=== PATIENT | male | born 1940 | race African-American/Black ===

== ENCOUNTER 2023-11-09 02:43 | Inpatient (IN) | payer OTHER ==
[~2023-11-09] VITALS: Ht 167.6 cm; Wt 56.7 kg
[2023-11-09 02:51] VITALS: BP_SYST 144; PULSE 87; RESP 19; TEMP 97.3; O2SAT 99
[2023-11-09 04:18] LABS: BILIRUBIN,URINE NEGATIVE (NEGATIVE); BLOOD, URINE NEGATIVE (NEGATIVE); CLARITY/URINE CLEAR (CLEAR); COLOR,URINE YELLOW (YELLOW); GLUCOSE,URINE 3+ (NEGATIVE); KETONES,URINE NEGATIVE (NEGATIVE); LEUKOCYTE ESTERASE ,URINE NEGATIVE (NEGATIVE); NITRITE, URINE NEGATIVE (NEGATIVE); PROTEIN URINE NEGATIVE (NEGATIVE); UROBILINOGEN,URINE 0.2 (0.2-1.0)
[2023-11-09 04:44] LABS: BASOPHILS # (AUTO) 0.1 K/uL (0.0-0.2); BASOPHILS % (AUTO) 0.6 % (0.0-2.0); EOSINOPHILS # (AUTO) 0.5 K/uL (0.0-0.4); EOSINOPHILS % (AUTO) 5.3 % (0.0-4.0); HEMATOCRIT 32.1 % (36-54); HEMOGLOBIN 10.5 g/dL (14.0-18.0); LYMPHOCYTES # (AUTO) 1.4 K/uL (1.0-5.5); MEAN CORPUSCULAR HEMOGLOBIN 29 pg (27-31); MEAN CORPUSCULAR HGB CONC 33 % (32-36); MEAN CORPUSCULAR VOLUME 89 fL (79.0-98.0); MONOCYTES # (AUTO) 0.8 K/uL (0.0-1.0); MONOCYTES % (AUTO) 9.1 % (1.7-9.3); NEUTROPHILS # (AUTO) 6.3 K/uL (1.8-7.7); PLATELET COUNT (AUTO) 422 K/uL (130-430); RED BLOOD CELL COUNT(AUTO) 3.61 MIL/uL (4.2-6.2); RED CELL DISTRIBUTION WIDTH 14.1 % (9.0-15.0)
[2023-11-09 04:58] LABS: ALANINE AMINOTRANSFERASE 14 U/L (12-78); ANION GAP 7 (5-15); ASPARTATE AMINOTRANSFERASE 17 U/L (10-37); BILIRUBIN,DIRECT 0.1 mg/dL (0.0-0.3); CALCIUM 8.5 mg/dL (8.4-11.0); CARBON DIOXIDE 25 mmol/L (23-29); CHLORIDE 113 mmol/L (98-107); CREATININE 1.58 mg/dL (0.55-1.30); GLUCOSE 190 mg/dL (74-106); POTASSIUM 3.5 mmol/L (3.5-5.1); SODIUM SERUM 145 mmol/L (136-145); TOTAL BILIRUBIN 0.2 mg/dL (0.0-1.0); TOTAL PROTEIN, SERUM 5.7 g/dL (6.4-8.3); UREA NITROGEN, BLOOD 20 mg/dL (8-21)
[2023-11-09] MEDS ORDERED: HYDROcodone/ACETAMIN 5-325 MG TAB (NORCO/ VICODIN) PO PRN (06:15)
[2023-11-09] MEDS ORDERED: ONDANSETRON HCL 4 MG/2 ML VIAL IVP PRN (06:15)
[2023-11-09] MEDS ORDERED: ACETAMINOPHEN 325 MG TABLET PO PRN (06:15)
[2023-11-09] MEDS ORDERED: HYDROcodone/ACETAMIN 10-325 MG TAB PO PRN (06:15)
[2023-11-09] MEDS ORDERED: VANC125C10 PO (06:41)
[2023-11-09] MEDS ORDERED: MIRT-91 PO (06:41)
[2023-11-09] MEDS ORDERED: ASPI-1155 PO (06:41)
[2023-11-09] MEDS ORDERED: METO-442 PO (06:41)
[2023-11-09] MEDS ORDERED: FENO160 PO (06:41)
[2023-11-09] MEDS ORDERED: HYDR-2923 PO (06:41)
[2023-11-09] MEDS ORDERED: MEGE400O46 PO (06:41)
[2023-11-09] MEDS ORDERED: ZINC100T2 PO (06:41)
[2023-11-09] MEDS ORDERED: FER300L (06:41)
[2023-11-09] MEDS ORDERED: ASCO500T20 PO (06:41)
[2023-11-09] MEDS ORDERED: ACET325T PO (06:41)
[2023-11-09] MEDS ORDERED: LOPE2CAP PO (06:41)
[2023-11-09] MEDS ORDERED: GLIP10TA11 PO (06:41)
[2023-11-09] MEDS ORDERED: LIP20 PO (06:41)
[2023-11-09] MEDS ORDERED: FAMO40TA71 PO (06:41)
[2023-11-09] MEDS ORDERED: DONE10TA44 PO (06:41)
[2023-11-09] MEDS ORDERED: SACC250C3 PO (06:41)
[2023-11-09] MEDS ORDERED: INSU100V10 (06:41)
[2023-11-09] MEDS: NACL 0.9% 1,000 ML IV ONE (07:05)
[2023-11-09] MEDS: NACL 0.9% 1,000 ML IV SCH (08:03)
[2023-11-09 10:35] VITALS: BP_SYST 159; PULSE 84; RESP 18; TEMP 97.9; O2SAT 94
[2023-11-09 15:54] VITALS: BP_SYST 155; PULSE 81; RESP 16; TEMP 98.4; O2SAT 93
[2023-11-09] MEDS ORDERED: DEXTROSE 50% JECT 50 ML DISP.SYRIN IVP PRN (17:45)
[2023-11-09] MEDS ORDERED: GLUCOSE (DEXTROSE) ORAL GEL -Adults PO PRN (17:45)
[2023-11-09] MEDS ORDERED: D5W 1,000 ML IV PRN (17:45)
[2023-11-09] MEDS: hydrALAZINE HCL 10 MG TABLET PO ONE (18:51)
[2023-11-09 20:00] VITALS: BP_SYST 150; PULSE 80; RESP 18; TEMP 98; O2SAT 95
[2023-11-09] MEDS: ATORVASTATIN 20 MG TABLET PO SCH (22:03)
[2023-11-09] MEDS: hydrALAZINE HCL 10 MG TABLET PO SCH (22:04)
[2023-11-09] MEDS: METOPROLOL TARTRATE 50 MG TABLET PO SCH (22:05)
[2023-11-09] MEDS: VANCOMYCIN HCL ORAL SOLUTION 25 MG/ML, 150 ML PO SCH (22:06)
[2023-11-09] MEDS: DONEPEZIL HCL 5 MG TABLET (ARICEPT) PO SCH (22:06)
[2023-11-09] MEDS: MIRTAZAPINE 15 MG TABLET PO SCH (22:10)
[2023-11-10 00:40] VITALS: BP_SYST 143; PULSE 90; RESP 14; TEMP 99; O2SAT 100
[2023-11-10 04:39] LABS: BASOPHILS # (AUTO) 0.1 K/uL (0.0-0.2); BASOPHILS % (AUTO) 0.8 % (0.0-2.0); EOSINOPHILS # (AUTO) 0.5 K/uL (0.0-0.4); EOSINOPHILS % (AUTO) 6.2 % (0.0-4.0); HEMATOCRIT 29.4 % (36-54); HEMOGLOBIN 9.7 g/dL (14.0-18.0); LYMPHOCYTES # (AUTO) 1.8 K/uL (1.0-5.5); LYMPHOCYTES % (AUTO) 21.6 % (20.5-51.5); MEAN CORPUSCULAR HEMOGLOBIN 29 pg (27-31); MEAN CORPUSCULAR HGB CONC 33 % (32-36); MEAN CORPUSCULAR VOLUME 89 fL (79.0-98.0); MONOCYTES # (AUTO) 0.8 K/uL (0.0-1.0); MONOCYTES % (AUTO) 10.1 % (1.7-9.3); NEUTROPHILS % (AUTO) 61.3 % (40.0-70.0); PLATELET COUNT (AUTO) 408 K/uL (130-430); RED BLOOD CELL COUNT(AUTO) 3.32 MIL/uL (4.2-6.2); WHITE BLOOD COUNT (AUTO) 8.2 K/uL (4.8-10.8)
[2023-11-10 04:56] LABS: ALANINE AMINOTRANSFERASE 13 U/L (12-78); ALBUMIN 1.8 g/dL (3.4-4.8); ANION GAP 7 (5-15); ASPARTATE AMINOTRANSFERASE 17 U/L (10-37); CARBON DIOXIDE 23 mmol/L (23-29); CHLORIDE 114 mmol/L (98-107); GLUCOSE 230 mg/dL (74-106); POTASSIUM 3.7 mmol/L (3.5-5.1); SODIUM SERUM 144 mmol/L (136-145); TOTAL BILIRUBIN 0.2 mg/dL (0.0-1.0); TOTAL PROTEIN, SERUM 5.2 g/dL (6.4-8.3); UREA NITROGEN, BLOOD 13 mg/dL (8-21)
[2023-11-10 08:05] VITALS: BP_SYST 135; PULSE 88; RESP 17; TEMP 98.4; O2SAT 99
[2023-11-10 08:10] VITALS: O2SAT 99
[2023-11-10] MEDS: ASPIRIN 81 MG TAB.CHEW PO SCH (08:37)
[2023-11-10] MEDS: LACTOBACILLUS RHAMNOSUS GG 1 CAP CAPSULE PO SCH (08:37)
[2023-11-10] MEDS: ASCORBIC ACID 500 MG TABLET PO SCH (08:37)
[2023-11-10] MEDS: FAMOTIDINE 20 MG TABLET PO SCH (08:37)
[2023-11-10] MEDS: FENOFIBRATE 160 MG TABLET PO SCH (09:00)
[2023-11-10] MEDS ORDERED: SACCHAROMYCES BOULARDII 250 MG CAPSULE (FLORASTOR) PO SCH (09:00)
[2023-11-10] MEDS ORDERED: LOPERAMIDE HCL 2 MG CAPSULE PO SCH (09:00)
[2023-11-10 11:18] VITALS: BP_SYST 137; PULSE 76; RESP 14; TEMP 98.6; O2SAT 100
[2023-11-10 14:19] VITALS: BP_SYST 125; PULSE 77; RESP 18; TEMP 98.6; O2SAT 98
== END 2023-11-10 16:05 | DRG 641 ==
LOC: SED 02:43 → SMU 06:26 → OBSVTOIN 15:38
PROVIDERS: ADMIT Internal Medicine; ATTEND Internal Medicine
DX: E86.0 Dehydration (principal); A04.72 Enterocolitis due to Clostridium difficile, not specified as recurrent; E44.0 Moderate protein-calorie malnutrition; E11.9 Type 2 diabetes mellitus without complications; E78.5 Hyperlipidemia, unspecified; E87.20 Acidosis, unspecified; G30.9 Alzheimer's disease, unspecified; F02.80 Dementia in other diseases classified elsewhere, unspecified severity, without behavioral disturbance, psychotic disturbance, mood disturbance, and anxiety; I11.0 Hypertensive heart disease with heart failure; I50.9 Heart failure, unspecified; Z68.20 Body mass index [BMI] 20.0-20.9, adult
CPT/HCPCS: 36415; 70450-TC; 71045; 72125-TC; 80048; 80053; 80076; 81001; 81003; 82948; 83605; 85025; 87040; 87081; 97110-GP; 97530-GP; 99285; G0378

== ENCOUNTER 2024-02-26 10:48 | Emergency (ER) | payer OTHER, MEDICAID ==
[~2024-02-26] VITALS: Ht 167.6 cm; Wt 59.0 kg
[~2024-02-26 10:48] MED LIST: ACET325T PO; ASCO500T20 PO; ASPI-1155 PO; DONE10TA44 PO; FAMO40TA71 PO; FENO160 PO; FER300L; GLIP10TA11 PO; HYDR-2923 PO; INSU100V10; LIP20 PO; LOPE2CAP PO; MEGE400O46 PO; METO-442 PO; MIRT-91 PO; SACC250C3 PO; VANC125C10 PO; ZINC100T2 PO
[2024-02-26 11:08] VITALS: BP_SYST 130; PULSE 98; RESP 16; TEMP 97.8; O2SAT 98
[2024-02-26] MEDS: BACITRACIN 1 GM OINT TP ONE (12:16)
[2024-02-26] MEDS: DIPHTH,PERTUSS(ACELL),TET VAC 0.5 ML VIAL (Tdap) I.M. ONE (12:18)
[2024-02-26] MEDS: LIDOCAINE 1% 10 MG/ML, 20 ML MDV INJ ONE (12:20)
[2024-02-26 12:52] LABS: BASOPHILS # (AUTO) 0.1 K/uL (0.0-0.2); BASOPHILS % (AUTO) 0.8 % (0.0-2.0); EOSINOPHILS # (AUTO) 0.8 K/uL (0.0-0.4); EOSINOPHILS % (AUTO) 7.3 % (0.0-4.0); HEMATOCRIT 32.8 % (36-54); HEMOGLOBIN 10.9 g/dL (14.0-18.0); LYMPHOCYTES # (AUTO) 3.2 K/uL (1.0-5.5); LYMPHOCYTES % (AUTO) 27.5 % (20.5-51.5); MEAN CORPUSCULAR HEMOGLOBIN 29 pg (27-31); MEAN CORPUSCULAR HGB CONC 33 % (32-36); MEAN CORPUSCULAR VOLUME 88 fL (79.0-98.0); MONOCYTES # (AUTO) 0.9 K/uL (0.0-1.0); MONOCYTES % (AUTO) 7.8 % (1.7-9.3); NEUTROPHILS # (AUTO) 6.6 K/uL (1.8-7.7); NEUTROPHILS % (AUTO) 56.6 % (40.0-70.0); PLATELET COUNT (AUTO) 360 K/uL (130-430); RED BLOOD CELL COUNT(AUTO) 3.72 MIL/uL (4.2-6.2); RED CELL DISTRIBUTION WIDTH 13.6 % (9.0-15.0); WHITE BLOOD COUNT (AUTO) 11.6 K/uL (4.8-10.8)
[2024-02-26 13:04] LABS: ANION GAP 10 (5-15); CALCIUM 9.5 mg/dL (8.4-11.0); CARBON DIOXIDE 24 mmol/L (23-29); CHLORIDE 115 mmol/L (98-107); CREATININE 2.04 mg/dL (0.55-1.30); GLUCOSE 133 mg/dL (74-106); POTASSIUM 4.3 mmol/L (3.5-5.1); SODIUM SERUM 149 mmol/L (136-145); UREA NITROGEN, BLOOD 37 mg/dL (8-21)
[2024-02-26 14:51] VITALS: BP_SYST 140; PULSE 72; RESP 17; TEMP 97.9; O2SAT 97
== END 2024-02-26 12:59 ==
LOC: SED 10:48
DX: L60.0 Ingrowing nail (principal); E11.9 Type 2 diabetes mellitus without complications; E78.5 Hyperlipidemia, unspecified; F03.90 Unspecified dementia, unspecified severity, without behavioral disturbance, psychotic disturbance, mood disturbance, and anxiety; Z79.82 Long term (current) use of aspirin; Z79.84 Long term (current) use of oral hypoglycemic drugs
CPT/HCPCS: 99284; 80048; 85025; 36415; 90715; 90471; 11730; J2003